=== PATIENT | male | born 2000 | race Caucasian/White ===

== ENCOUNTER 2024-08-17 21:48 | Emergency (ER) | payer SELFPAY ==
[~2024-08-17] VITALS: Ht 157.5 cm; Wt 78.0 kg
[2024-08-17 21:55] VITALS: O2SAT 98
[2024-08-17 21:57] VITALS: BP 103/68; PULSE 79; RESP 16; TEMP 97.8; O2SAT 100
[2024-08-17 23:17] LABS: BASOPHILS % 0.5 % (0.0-2.0); EOSINOPHILS % 1.1 % (0.0-5.0); HEMATOCRIT. 44.3 % (42.0-52.0); LYMPHOCYTES % 19.1 % (20.0-50.0); MEAN CORPUSCULAR HEMOGLOBIN 29.3 pg (28.0-32.0); MEAN CORPUSCULAR HGB CONC 33.9 g/dL (31.0-37.0); MEAN CORPUSCULAR VOLUME 86.6 fL (80.0-94.0); MEAN PLATELET VOLUME 8.7 fl (7.4-10.4); MONOCYTES % 6.6 % (2.0-8.0); NEUTROPHILS % 72.7 % (40.0-76.0); PLATELET 199 x1000/uL (130-400); RED BLOOD CELL COUNT 5.12 mill/uL (4.7-6.1); RED CELL DISTRIBUTION WIDTH 14.2 % (11.6-14.6); WHITE BLOOD COUNT 9.1 x1000/uL (4.5-11.0)
[2024-08-17 23:23] LABS: CHLORIDE 101 mEq/L (98-107); POTASSIUM 3.8 mEq/L (3.5-5.1); SODIUM 135 mEq/L (136-145)
[2024-08-17 23:24] LABS: CARBON DIOXIDE 27 mEq/L (21-32)
[2024-08-17 23:25] LABS: CALCIUM 9.8 mg/dL (8.7-10.4)
[2024-08-17 23:29] LABS: CREATININE 0.9 mg/dL (0.6-1.3); GLUCOSE 89 mg/dL (70-105); UREA NITROGEN BLOOD 11 mg/dL (9-23)
[2024-08-18] LABS: ERYTHROCYTE SEDIMENTATION RATE 35 mm/hr (0-15)
[2024-08-18] MEDS ORDERED: CEPH500C2 MT (00:20)
[2024-08-18] MEDS ORDERED: IBUP-2028 MT (00:20)
== END 2024-08-18 00:37 | disposition home or self-care (01) ==
LOC: ER 21:48
DX: L03.115 Cellulitis of right lower limb (principal)
CPT/HCPCS: 36415; 80048; 85025; 85651; 99283

== ENCOUNTER 2024-09-11 22:08 | Emergency (ER) | payer SELFPAY ==
[~2024-09-11] VITALS: Ht 160 cm; Wt 62.2 kg
[~2024-09-11 22:08] MED LIST: CEPH500C2 MT; IBUP-2028 MT
[2024-09-11 22:26] VITALS: BP 107/62; RESP 16; TEMP 98.4; O2SAT 100
[2024-09-11 22:32] VITALS: PULSE 82; O2SAT 99
== END 2024-09-12 01:17 | disposition left against medical advice (07) ==
LOC: ER 22:08
DX: M79.671 Pain in right foot (principal); Z53.21 Procedure and treatment not carried out due to patient leaving prior to being seen by health care provider

== ENCOUNTER 2024-09-12 01:54 | Emergency (ER) | payer SELFPAY ==
[~2024-09-12] VITALS: Ht 157.5 cm; Wt 62.2 kg
[2024-09-12 02:00] VITALS: O2SAT 100
[2024-09-12 03:45] VITALS: BP 113/68; PULSE 71; RESP 16; TEMP 36.39180; O2SAT 100
== END 2024-09-12 04:14 | disposition home or self-care (01) ==
LOC: ER 01:54
DX: M79.89 Other specified soft tissue disorders (principal)
CPT/HCPCS: 93971; 99284